=== PATIENT | female | born 1990 | race Caucasian/White ===

== ENCOUNTER 2017-10-30 15:56 | Inpatient (IN) | payer OTHER ==
[2017-10-30] MEDS ORDERED: Ampicillin 2 GM in Sodium Chloride 0.9% 100 ML IV ONE (18:40)
[2017-10-30] MEDS ORDERED: Sodium Chloride 0.9% 10 ML Syringe FLUSH PRN (18:40)
[2017-10-31] MEDS: Ampicillin 1 GM in Sodium Chloride 0.9% 100 ML IV SCH ×5 (00:14→15:59)
--- NOTE | 2017-10-31 01:35 | PCM.LDHP ---
L&D History of Present Illness - General Date of Service: 10/31/17 Admit Problem/Dx: Patient Status Order with Admit Dx/Problem 10/30/17 19:36 Patient Status [ADT] Routine Admission Diagnosis/Problem Admission Diagnosis/Problem Source of Information: Patient History Limitations: Reports: No Limitations - History of Present Illness Introduction:: 27 year old here with bloody show and irregular contractions. - Related Data Allergies/Adverse Reactions: Allergies Allergy/AdvReac Type Severity Reaction Status Date / Time Sulfa (Sulfonamide AdvReac Vomiting Verified 08/06/17 12:31 Antibiotics) turtle Allergy Itching Uncoded 10/30/17 20:29 Home Medications: Home Meds Nitrofurantoin [place]/Macrocryst [Macrobid] 2 cap PO DAILY 08/06/17 [History] Past Medical History Gastrointestinal History: Reports: Other (See Below) Other Gastrointestinal History: hyperemesis graviderum Musculoskeletal History: Reports: Other (See Below) Other Musculoskeletal History: congenital hip deformity Social & Family History - Tobacco Use Smoking Status *Q: Never Smoker - Caffeine Use Caffeine Use: Reports: Coffee - Recreational Drug Use Recreational Drug Use: No H&P Review of Systems - Review of Systems: Review Of Systems: See Below General: Reports: No Symptoms HEENT: Reports: No Symptoms Pulmonary: Reports: No Symptoms Cardiovascular: Reports: No Symptoms Gastrointestinal: Reports: No Symptoms Genitourinary: Reports: No Symptoms Musculoskeletal: Reports: No Symptoms Skin: Reports: No Symptoms Psychiatric: Reports: No Symptoms Neurological: Reports: No Symptoms Hematologic/Lymphatic: Reports: No Symptoms Immunologic: Reports: No Symptoms L&D Exam - Exam Exam: See Below - Vital Signs Vital Signs: Last Vital Signs Temp 36.5 C 10/30/17 17:08 Pulse 73 10/30/17 17:08 Resp 18 10/30/17 17:08 BP 135/96 H 10/30/17 17:08 Pulse Ox Weight: 70.307 kg - OB Specific Fundal Height In cm: 39 Contraction Intensity: Mild to Moderate Movement: Active Heart Tones: Present Heart Rate (FHR) Variability: Moderate (6-25 bmp) Presentation: Vertex - Greenberg Score Greenberg Score Cervix Position: Midposition Greenberg Score Consistency: Soft Greenberg Score Effacement: 51-70% Greenberg Score Dilation: 3-4 cm Greenberg Score 's Station: -1 ,0 Greenberg Score Total: 9 - Exam General: Alert, Oriented HEENT: PERRLA, Conjunctiva Clear, EACs Clear, EOMI, Hearing Intact, Mucosa Moist & Leaf, Nares Patent, Normal Nasal Septum, Posterior Pharynx Clear, TMs Clear Neck: Supple, Trachea Midline Lungs: Clear to Auscultation, Normal Respiratory Effort Cardiovascular: Regular Rate, Regular Rhythm GI/Abdominal Exam: Normal Bowel Sounds, Soft, Non-Tender, No Organomegaly, No Distention, No Abnormal Bruit, No Mass, Pelvis Stable Genitourinary: Normal external exam, Normal bimanual exam, Normal speculum exam Back Exam: Normal Inspection, Full Range of Motion Extremities: Normal Inspection, Normal Range of Motion, Non-Tender, No Pedal Edema, Normal Capillary Refill Skin: Warm, Dry, Intact Neurological: Cranial Nerves Intact, Reflexes Equal Bilateral Psychiatric: Alert, Normal Affect, Normal Mood - Patient Data Lab Results Last 24 hrs: Laboratory Results - last 24 hr 10/30/17 10/30/17 10/30/17 Range/Units 17:10 17:45 17:45 WBC 11.10 H (3.98-10.04) K/mm3 RBC 4.69 (3.98-5.22) M/mm3 Hgb 13.5 (11.2-15.7) gm/L Hct 40.1 (34.1-44.9) % MCV 85.5 (79.4-94.8) fl MCH 28.8 (25.6-32.2) pg MCHC 33.7 (32.2-35.5) g/dl RDW Std Deviation 49.6 H (36.4-46.3) fL Plt Count 220 (182-369) K/mm3 MPV 11.1 (9.4-12.3) fl Neut % (Auto) 63.9 (34.0-71.1) % Lymph % (Auto) 28.9 (19.3-51.7) % [place] % (Auto) 6.2 (4.7-12.5) % Eos % (Auto) 0.5 L (0.7-5.8) Baso % (Auto) 0.2 (0.1-1.2) % Neut # (Auto) 7.09 H (1.56-6.13) K/mm3 Lymph # (Auto) 3.21 (1.18-3.74) K/mm3 [place] # (Auto) 0.69 H (0.24-0.36) K/mm3 Eos # (Auto) 0.06 (0.04-0.36) K/mm3 Baso # (Auto) 0.02 (0.01-0.08) K/mm3 BUN 8 (7-18) mg/dL Creatinine 0.8 (0.55-1.02) mg/dL Est Cr Clr Drug Dosing 94.21 mL/min Estimated GFR (MDRD) > 60 (>60) mL/min Uric Acid 6.3 H (2.6-6.0) mg/dL AST 20 (15-37) U/L ALT 16 (14-59) U/L Lactate Dehydrogenase 209 (81-234) U/L Urine Color Yellow (Yellow) Urine Appearance Clear (Clear) Urine pH 7.0 (5.0-8.0) Ur Specific [place] 1.025 (1.005-1.030) Urine Protein Negative (Negative) Urine Glucose (UA) Negative (Negative) Urine Ketones 1+ H (Negative) Urine Occult Blood Trace-lysed H (Negative) Urine Nitrite Negative (Negative) Urine Bilirubin Negative (Negative) Urine Urobilinogen 0.2 (0.2-1.0) Ur Leukocyte Esterase Negative (Negative) Urine RBC 0-5 (0-5) /hpf Urine WBC 0-5 (0-5) /hpf Ur Epithelial Cells 0-5 (0-5) /hpf Urine Bacteria Few (FEW) /hpf Urine Mucus Not seen (FEW) /hpf Result Diagrams: 10/30/17 17:45 10/30/17 17:45 Problem List Initiated/Reviewed/Updated: Yes Orders Last 24hrs: Active Orders 24 hr Category Date Time Status Patient Status [ADT] Routine ADT 10/30/17 19:36 Active Activity as Tolerated [RC] PFP Care 10/30/17 18:41 Active Communication Order [RC] ASDIRECTED Care 10/30/17 18:41 Active Heart Tones [RC] ASDIRECTED Care 10/30/17 18:41 Active Notify Provider [RC] PFP Care 10/30/17 18:41 Active Notify Provider [RC] PRN Care 10/30/17 18:41 Active Peripheral IV Care [RC] . DIRECTED Care 10/30/17 18:41 Active Vital Signs [RC] PER UNIT ROUTINE Care 10/30/17 17:08 Active Regular Diet [DIET] Diet 10/30/17 Breakfast Active Ampicillin 1 gm Med 10/30/17 23:00 Active Sodium Chloride 0.9% [Normal Saline] 100 ml IV Q4H Lactated Ringers [Ringers, Lactated] 1,000 ml Med 10/30/17 18:45 Active IV ASDIRECTED Sodium Chloride 0.9% [Saline Flush] Med 10/30/17 18:40 Active 10 ml FLUSH ASDIRECTED PRN Electronic Heart Tones Ext w TOCO [WOMSER] Oth 10/30/17 18:41 Ordered Routine Electronic Heart Tones Internal [WOMSER] Per Unit Oth 10/30/17 18:41 Ordered Routine PIH Panel [OM.PC] Stat Oth 10/30/17 17:09 Ordered Peripheral IV Insertion Adult [OM.PC] Routine Oth 10/30/17 18:41 Ordered Resuscitation Status Routine Resus Stat 10/30/17 17:08 Ordered Medication Orders Ampicillin Sodium 1 gm/ Sodium (Chloride) 100 mls @ 200 mls/hr IV Q4H MICKI Last Admin: 10/31/17 00:14 Dose: 200 mls/hr Lactated Ringer's (Ringers, Lactated) 1,000 mls @ 100 mls/hr IV ASDIRECTED MICKI Sodium Chloride (Saline Flush) 10 ml FLUSH ASDIRECTED PRN PRN Reason: Keep Vein Open Assessment/Plan Comment:: 27 year old here with elevated blood pressures and early labor. 40w0d Augment with AROM if minimal cervical change. Labs normal so no signs of HEELP.
[2017-10-31] MEDS: Acetaminophen 325 MG Tab PO PRN ×2 (03:00→11:39)
[2017-10-31] MEDS: Lactated Ringers 1,000 ML IV SCH ×2 (04:46→11:36)
[2017-10-31] MEDS: Nalbuphine 20 MG/1 ML Amp IVPUSH PRN ×2 (04:48→07:53)
[2017-10-31] MEDS ORDERED: Oxytocin/Lactated Ringers 10 UNIT/1,000 ML BAG IV SCH ×2 (09:00→13:15)
[2017-10-31] MEDS ORDERED: fentaNYL 100 MCG/2 ML SDV ONE (17:50)
[2017-10-31] MEDS ORDERED: Lidocaine 1% 50 ML MDV ONE (17:50)
[2017-10-31] MEDS ORDERED: Acetaminophen/oxyCODONE 325-5 MG Tab PO PRN (18:32)
[2017-10-31] MEDS ORDERED: Witch Hazel Medicated Pads 100/Jar TOP PRN (18:32)
[2017-10-31] MEDS ORDERED: Docusate Sodium 100 MG Cap PO PRN (18:32)
[2017-10-31] MEDS: Ibuprofen 600 MG Tab PO PRN (18:46)
--- NOTE | 2017-11-01 08:45 | PCM.PNPP ---
- General Info Date of Service: 11/01/17 Functional Status: Reports: Pain Controlled - Review of Systems General: Reports: No Symptoms HEENT: Reports: No Symptoms Pulmonary: Reports: No Symptoms Cardiovascular: Reports: No Symptoms Gastrointestinal: Reports: No Symptoms Genitourinary: Reports: No Symptoms Musculoskeletal: Reports: No Symptoms Skin: Reports: No Symptoms Neurological: Reports: No Symptoms Psychiatric: Reports: No Symptoms - General Info Date of Service: 11/01/17 - Patient Data Vital Signs - Most Recent: Last Vital Signs Temp 36.8 C 11/01/17 04:16 Pulse 83 11/01/17 04:16 Resp 16 11/01/17 04:16 BP 112/75 11/01/17 04:16 Pulse Ox 95 11/01/17 04:16 Weight - Most Recent: 70.307 kg I&O - Last 24 Hours: Intake & Output 10/31/17 11/01/17 11/01/17 22:59 06:59 14:59 Intake Total 360 Balance 360 Med Orders - Current: Current Medications Docusate Sodium (Colace) 100 mg PO BID PRN PRN Reason: Constipation Ibuprofen (Motrin) 600 mg PO Q6H PRN PRN Reason: Mild pain or fever Last Admin: 10/31/17 18:46 Dose: 600 mg Oxycodone/Acetaminophen (Percocet 325-5 Mg) 2 tab PO Q6H PRN PRN Reason: Pain (moderate 4-6) Last Admin: 11/01/17 01:22 Dose: 1 tab Witch Stacey (Tucks) 1 pad TOP ASDIRECTED PRN PRN Reason: Hemorrhoid pain Discontinued Medications Acetaminophen (Tylenol) 650 mg PO Q4H PRN PRN Reason: Headache Last Admin: 10/31/17 11:39 Dose: 650 mg Fentanyl (Sublimaze) Confirm Administered Dose 100 mcg .ROUTE .STK-MED ONE Stop: 10/31/17 17:51 Last Admin: 10/31/17 18:48 Dose: 25 mcg Ampicillin Sodium 2 gm/ Sodium (Chloride) 100 mls @ 200 mls/hr IV ONETIME ONE Stop: 10/30/17 19:09 Last Admin: 10/30/17 19:42 Dose: 200 mls/hr Ampicillin Sodium 1 gm/ Sodium (Chloride) 100 mls @ 200 mls/hr IV Q4H MICKI Last Admin: 10/31/17 15:59 Dose: 200 mls/hr Lactated Ringer's (Ringers, Lactated) 1,000 mls @ 100 mls/hr IV ASDIRECTED MICKI Last Admin: 10/31/17 11:36 Dose: 100 mls/hr Oxytocin/Lactated Ringer's (Pitocin In Lr 10 Units/1,000 Ml) 10 unit in 1,000 mls @ 12 mls/hr IV TITRATE MICKI; 2 MUNITS/MIN PRN Reason: Protocol Oxytocin/Lactated Ringer's (Pitocin In Lr 10 Units/1,000 Ml) 10 unit in 1,000 mls @ 500 mls/hr IV ASDIRECTED MICKI PRN Reason: Protocol Oxytocin 10 unit/ Lactated (Ringer's) 1,001 mls @ 12.01 mls/hr IV TITRATE MICKI; 2 MUNITS/MIN PRN Reason: Protocol Last Titration: 10/31/17 16:46 Dose: 4 munits/min, 24.02 mls/hr Lidocaine HCl (Xylocaine 1%) Confirm Administered Dose 50 ml .ROUTE .STK-MED ONE Stop: 10/31/17 17:51 Last Admin: 10/31/17 18:00 Dose: 50 ml Nalbuphine HCl (Nubain) 10 mg IVPUSH Q2H PRN PRN Reason: Abdominal Pain Last Admin: 10/31/17 07:53 Dose: 10 mg Sodium Chloride (Saline Flush) 10 ml FLUSH ASDIRECTED PRN PRN Reason: Keep Vein Open - Interaction Infant Disposition, : at Bedside Support Person: - Recovery Exam Fundal Tone: Firm Fundal Level: At Umbilicus Fundal Placement: Midline Lochia Amount: Small Lochia Color: Rubra/Red Perineum Description: Other (see below) Other Perinuem Description: 1st degree laceration with repair Episiotomy/Laceration: Approximated Bladder Status: Voiding Urinary Elimination: Voided - Exam General: Alert, Oriented HEENT: Pupils Equal Neck: Supple Lungs: Clear to Auscultation, Normal Respiratory Effort Cardiovascular: Regular Rate, Regular Rhythm GI/Abdominal Exam: Normal Bowel Sounds, Soft, Non-Tender, No Organomegaly, No Distention, No Abnormal Bruit, No Mass, Pelvis Stable Extremities: Normal Inspection, Normal Range of Motion, Non-Tender, No Pedal Edema, Normal Capillary Refill Skin: Warm, Dry, Intact Wound/Incisions: Healing Well Neurological: No New Focal Deficit Psy/Mental Status: Alert, Normal Affect, Normal Mood - Problem List Review Problem List Initiated/Reviewed/Updated: Yes - My Orders Last 24 Hours: My Active Orders 10/31/17 18:32 Activity as Tolerated [RC] Vital Signs [RC] 04,12,20 Acetaminophen/oxyCODONE [Percocet 325-5 MG] 2 tab PO Q6H PRN Docusate Sodium [Colace] 100 mg PO BID PRN Ibuprofen [Motrin] 600 mg PO Q6H PRN Witch Stacey [Tucks] 1 pad TOP ASDIRECTED PRN Assess Lochia [WOMSER] Per Unit Routine Assess Uterine Involution [WOMSER] Per Unit Routine Breast Pump [WOMSER] Per Unit Routine Heat Therapy [OM.PC] PRN Medication Administration Instruction [OM.PC] Routine Perineal Care [OM.PC] Per Unit Routine Sitz Bath [OM.PC] Per Unit Routine 11/01/17 18:32 Heat Therapy [OM.PC] PRN - Assessment Assessment:: PPD1 Doing well. LIkely discharge tomorrow.
[2017-11-01] MEDS: Ibuprofen 600 MG Tab PO PRN ×2 (15:00→21:50)
[2017-11-01] MEDS: Hydrocortisone Acetate 25 MG Supp RECTAL PRN (21:50)
--- NOTE | 2017-11-02 09:49 | PCM.DCSUM1 ---
Discharge Summary - Hospital Course Free Text/Narrative:: Lidia is a 27-year-old 1 now para 1001 white female who was admitted at 40-0/7 weeks for early labor and elevated blood pressure. Has a history of hyperemesis which was quite severe during the . Delivered a small for gestational age baby 2 days ago on 11/04/2017. At this time she is doing well and is desiring discharge home. - Discharge Data Discharge Date: 11/02/17 Discharge Disposition: Home, Self-Care 01 Condition: Good - Patient Instructions Diet: Regular Diet as Tolerated (Nursing diet with increased calcium calories) Activity: As Tolerated (No intercourse or tampons until bleeding resolves) Driving: May Drive Today Showering/Bathing: May Shower (May take a bath) Notify Provider of: Fever, Increased Pain, Swelling and Redness, Nausea and/or Vomiting - Discharge Plan Home Medications: Home Meds Nitrofurantoin [place]/Macrocryst [Macrobid] 2 cap PO DAILY 08/06/17 [History] Ibuprofen [IJD: Ibuprofen] 600 mg PO Q6H PRN tablet 11/02/17 [Rx] Referrals: Zabrina Blakely MD [Primary Care Provider] - (Return to clinic6 weeks ) - Discharge Summary/Plan Comment DC Time >30 min.: No Discharge Summary/Plan Comment: Discharge instructions: 1. Discharge home 2. Diet, activity and follow-up discussed with patient. Recommend nursing diet with increased calories and calcium. 3. Precautions given concern increased pain, bleeding, temperature, signs/ symptoms of DVT/PE. 4. Medications per home medication was printed, discussed with and given to the patient. 5. Return to clinic-Dr. Walker at [facility] in 6 weeks. Diagnosis: Term -delivered Condition: Good - Patient Data Vitals - Most Recent: Last Vital Signs Temp 36.5 C 11/02/17 03:50 Pulse 63 11/02/17 03:50 Resp 16 11/01/17 12:56 BP 132/78 11/02/17 03:50 Pulse Ox 90 L 11/02/17 03:50 Weight - Most Recent: 70.307 kg I&O - Last 24 hours: Intake & Output 11/01/17 11/02/17 11/02/17 22:59 06:59 14:59 Intake Total 240 Balance 240 Med Orders - Current: Current Medications Docusate Sodium (Colace) 100 mg PO BID PRN PRN Reason: Constipation Hydrocortisone Acetate (Anucort-Hc) 25 mg RECTAL BID PRN PRN Reason: hemorrhoid pain Last Admin: 11/01/17 21:50 Dose: 25 mg Ibuprofen (Motrin) 600 mg PO Q6H PRN PRN Reason: Mild pain or fever Last Admin: 11/01/17 21:50 Dose: 600 mg Oxycodone/Acetaminophen (Percocet 325-5 Mg) 2 tab PO Q6H PRN PRN Reason: Pain (moderate 4-6) Last Admin: 11/01/17 01:22 Dose: 1 tab Witch Stacey (Tucks) 1 pad TOP ASDIRECTED PRN PRN Reason: Hemorrhoid pain Discontinued Medications Acetaminophen (Tylenol) 650 mg PO Q4H PRN PRN Reason: Headache Last Admin: 10/31/17 11:39 Dose: 650 mg Fentanyl (Sublimaze) Confirm Administered Dose 100 mcg .ROUTE .STK-MED ONE Stop: 10/31/17 17:51 Last Admin: 10/31/17 18:48 Dose: 25 mcg Ampicillin Sodium 2 gm/ Sodium (Chloride) 100 mls @ 200 mls/hr IV ONETIME ONE Stop: 10/30/17 19:09 Last Admin: 10/30/17 19:42 Dose: 200 mls/hr Ampicillin Sodium 1 gm/ Sodium (Chloride) 100 mls @ 200 mls/hr IV Q4H MICKI Last Admin: 10/31/17 15:59 Dose: 200 mls/hr Lactated Ringer's (Ringers, Lactated) 1,000 mls @ 100 mls/hr IV ASDIRECTED MICKI Last Admin: 10/31/17 11:36 Dose: 100 mls/hr Oxytocin/Lactated Ringer's (Pitocin In Lr 10 Units/1,000 Ml) 10 unit in 1,000 mls @ 12 mls/hr IV TITRATE MICKI; 2 MUNITS/MIN PRN Reason: Protocol Oxytocin/Lactated Ringer's (Pitocin In Lr 10 Units/1,000 Ml) 10 unit in 1,000 mls @ 500 mls/hr IV ASDIRECTED MICKI PRN Reason: Protocol Oxytocin 10 unit/ Lactated (Ringer's) 1,001 mls @ 12.01 mls/hr IV TITRATE MICKI; 2 MUNITS/MIN PRN Reason: Protocol Last Titration: 10/31/17 16:46 Dose: 4 munits/min, 24.02 mls/hr Lidocaine HCl (Xylocaine 1%) Confirm Administered Dose 50 ml .ROUTE .STK-MED ONE Stop: 10/31/17 17:51 Last Admin: 10/31/17 18:00 Dose: 50 ml Nalbuphine HCl (Nubain) 10 mg IVPUSH Q2H PRN PRN Reason: Abdominal Pain Last Admin: 10/31/17 07:53 Dose: 10 mg Sodium Chloride (Saline Flush) 10 ml FLUSH ASDIRECTED PRN PRN Reason: Keep Vein Open *Q Meaningful Use (DIS) - VTE *Q VTE Criteria *Q: - Stroke *Q Stroke Criteria *Q: - AMI *Q AMI Criteria *Q:
[2017-11-02] MEDS ORDERED: Lanolin 100% Cream 7 GM Tube TOP PRN (09:51)
[2017-11-02] MEDS: Hydrocortisone Acetate 25 MG Supp RECTAL PRN (12:23)
[2017-11-02] MEDS: Ibuprofen 600 MG Tab PO PRN (12:23)
[2017-11-02 13:06] VITALS: BP 111/63
== END 2017-11-02 14:40 | disposition home or self-care (01) | DRG 775 ==
LOC: JD.OBCHECK 15:56 → JD.OB 15:57 → JD.OBCHECK 18:42 → JD.OB 18:43 → OBSVTOIN 10-31 17:47 → JD.OB 10-31 17:47
PROVIDERS: ADMIT Obstetrics & Gynecology; ATTEND Obstetrics & Gynecology
PROC: 10E0XZZ Delivery of Products of Conception, External Approach (ICD-10-PCS; principal; 2017-10-31)
PROC: 10907ZC Drainage of Amniotic Fluid, Therapeutic from Products of Conception, Via Natural or Artificial Opening (ICD-10-PCS; 2017-10-31)
PROC: 3E0234Z Introduction of Serum, Toxoid and Vaccine into Muscle, Percutaneous Approach (ICD-10-PCS; 2017-11-01)
DX: O16.4 Unspecified maternal hypertension, complicating childbirth (principal); O99.824 Streptococcus B carrier state complicating childbirth; Z3A.40 40 weeks gestation of pregnancy; Z37.0 Single live birth; Z23 Encounter for immunization; Z88.2 Allergy status to sulfonamides; Z91.018 Allergy to other foods
CPT/HCPCS: 36415; 59300; 59409; 81001; 82565; 83615; 84450; 84460; 84520; 84550; 85025; A9270-GY; J0290; J2300; J2590; J3010; J7030; J7120

== ENCOUNTER 2023-02-20 11:55 | Inpatient (IN) | payer OTHER ==
[2023-02-20] MEDS ORDERED: Ondansetron 4 MG/2 ML SDV IVPUSH PRN (12:10)
[2023-02-20] MEDS ORDERED: Nalbuphine 10 MG/0.5 ML Syringe IVPUSH PRN (12:10)
[2023-02-20] MEDS ORDERED: Calcium Carbonate 500 MG Tab.Chew PO PRN (12:10)
[2023-02-20] MEDS ORDERED: Oxytocin/Lactated Ringers 10 UNIT/1,000 ML BAG IV SCH ×2 (12:15)
[2023-02-20] MEDS: Lactated Ringers 1,000 ML IV SCH ×2 (12:36→14:14)
[2023-02-20 17:50] LABS: C. TRACHOMATIS BY PCR NOT DETECTED; N. GONORRHOEAE BY PCR NOT DETECTED
[2023-02-20] MEDS ORDERED: Acetaminophen 325 MG Tab PO PRN (23:26)
[2023-02-20] MEDS ORDERED: Benzocaine/Menthol 20%-0.5% Spray 78 GM Cannister TOP PRN (23:26)
[2023-02-20] MEDS ORDERED: Witch Hazel Medicated Pads 40/Jar TOP PRN (23:26)
[2023-02-20] MEDS ORDERED: Ibuprofen 600 MG Tab PO PRN (23:26)
[2023-02-21 20:50] VITALS: BP 124/74; PULSE 79
== END 2023-02-22 02:45 | disposition home or self-care (01) | DRG 807 ==
LOC: JD.OB 11:55 → OBSVTOIN 21:25 → JD.OB 21:26
PROVIDERS: ADMIT Obstetrics & Gynecology; ATTEND Obstetrics & Gynecology
PROC: 10E0XZZ Delivery of Products of Conception, External Approach (ICD-10-PCS; principal; 2023-02-20)
PROC: 0HQ9XZZ Repair Perineum Skin, External Approach (ICD-10-PCS; 2023-02-20)
PROC: 10907ZC Drainage of Amniotic Fluid, Therapeutic from Products of Conception, Via Natural or Artificial Opening (ICD-10-PCS; 2023-02-20)
DX: O21.0 Mild hyperemesis gravidarum (principal); Z37.0 Single live birth; Z3A.39 39 weeks gestation of pregnancy; O70.0 First degree perineal laceration during delivery
CPT/HCPCS: 36415; 59025; 59409; 85025; 86592; 86850; 86900; 86901; 87491; 87591; A9270-GY; J2300; J2590; J7120